=== PATIENT | female | born 1945 | race Caucasian/White ===

== ENCOUNTER 2017-06-28 11:24 | Outpatient (CLI) | payer MEDICARE, BC | END 2017-06-28 13:24 | disposition home or self-care (01) | LOC: ECT 11:24 | DX: F33.2 Major depressive disorder, recurrent severe without psychotic features (principal); I10 Essential (primary) hypertension; Z85.6 Personal history of leukemia ==

== ENCOUNTER 2017-06-30 05:07 | Outpatient (RCR) | payer MEDICARE, BC | END 2017-07-01 | disposition home or self-care (01) | LOC: ECT 05:07 | DX: F33.2 Major depressive disorder, recurrent severe without psychotic features (principal); Z85.6 Personal history of leukemia; I10 Essential (primary) hypertension ==